=== PATIENT | female | born 1990 | race African-American/Black ===

== ENCOUNTER 2017-10-05 18:08 | Emergency (ER) | payer OTHER, MEDICAID ==
[~2017-10-05] VITALS: Ht 157.5 cm; Wt 113.4 kg
[~2017-10-05 18:08] MED LIST: ACETAMINOPHEN-1 EAC1 PO; BACTRIM DS TAB1 EACH PO; IBUPROFEN 800800 M1 PO
[2017-10-05] MEDS ORDERED: TYLENOL EXTRA500 MG PO (18:26)
[2017-10-05 18:53] LABS: ABSOLUTE LYMPHOCYTES 1.3 thou/uL (0.8-5.3); ABSOLUTE MONOCYTES 0.7 thou/uL (0.0-1.2); ABSOLUTE NEUTROPHILS 6.8 thou/uL (1.6-8.1); BASOPHILS 0.4 %; EOSINOPHILS 0.4 %; HEMATOCRIT 36.9 % (37.0-47.0); HEMOGLOBIN 11.8 gm/dL (12.0-15.0); LYMPHOCYTES 14.5 %; MCH 24.5 pg (26.0-34.0); MCHC 31.8 g/dL (28.0-37.0); MONOCYTES 7.6 %; MPV 8.2 fl. (7.2-11.1); NUCLEATED RBCS 0 /100WBC; PLATELET COUNT* 301 thou/uL (150-400); POLYS 77.1 %; RDW-CV 14.1 % (10.5-14.5); WBC 8.8 thou/uL (4.0-11.0)
[2017-10-05 19:04] LABS: CALCIUM 8.7 mg/dL (8.5-10.1); CREATININE 0.9 mg/dL (0.6-1.3); POTASSIUM 3.5 mmol/L (3.5-5.1)
[2017-10-05 19:10] LABS: ALBUMIN 3.6 g/dL (3.4-5.0); TOTAL BILIRUBIN 0.4 mg/dL (<0.1-1.0); TOTAL PROTEIN 8.3 g/dL (6.4-8.2)
[2017-10-05 20:50] LABS: URINE BILIRUBIN NEGATIVE (Negative); URINE BLOOD TRACE (Negative); URINE CLARITY CLEAR; URINE COLOR YELLOW; URINE GLUCOSE-RANDOM NEGATIVE (Negative); URINE KETONES 1+ (Negative); URINE LEUKOCYTES NEGATIVE (Negative); URINE NITRITE NEGATIVE (Negative); URINE PROTEIN NEGATIVE (Negative); URINE SPECIFIC GRAVITY >= 1.030 (1.005-1.030); URINE UROBILINOGEN 0.2 E.U./dl (0.2-1.0)
[2017-10-05] MEDS ORDERED: NORCO 5-325 TA1 EACH PO (21:30)
[2017-10-05 21:40] VITALS: BP 141/79
== END 2017-10-05 21:45 | disposition home or self-care (01) ==
LOC: M.ERS 18:08
PROVIDERS: Physician Assistant Surgical
DX: O21.9 Vomiting of pregnancy, unspecified (principal); O34.81 Maternal care for other abnormalities of pelvic organs, first trimester; N83.12 Corpus luteum cyst of left ovary; O26.891 Other specified pregnancy related conditions, first trimester; K08.89 Other specified disorders of teeth and supporting structures; Z3A.01 Less than 8 weeks gestation of pregnancy; Z88.0 Allergy status to penicillin

== ENCOUNTER 2019-08-28 01:17 | Emergency (ER) | payer OTHER ==
[~2019-08-28] VITALS: Ht 157.5 cm; Wt 114.8 kg
[~2019-08-28 01:17] MED LIST changes: +NORCO 5-325 TA1 EACH PO; +TYLENOL EXTRA500 MG PO
[2019-08-28 01:40] LABS: URINE BILIRUBIN NEGATIVE (Negative); URINE BLOOD NEGATIVE (Negative); URINE CLARITY CLEAR; URINE COLOR YELLOW; URINE GLUCOSE-RANDOM NEGATIVE (Negative); URINE KETONES NEGATIVE (Negative); URINE LEUKOCYTES-REFLEX NEGATIVE (Negative); URINE NITRITE-REFLEX NEGATIVE (Negative); URINE PROTEIN NEGATIVE (Negative); URINE SPECIFIC GRAVITY >= 1.030 (1.005-1.030); URINE UROBILINOGEN 0.2 E.U./dl (0.2-1.0)
[2019-08-28 02:10] LABS: ABSOLUTE BASOPHILS 0.1 thou/uL (0.0-0.2); ABSOLUTE EOSINOPHILS 0.1 thou/uL (0.0-0.7); ABSOLUTE LYMPHOCYTES 3.2 thou/uL (0.8-5.3); ABSOLUTE MONOCYTES 0.6 thou/uL (0.0-1.2); ABSOLUTE NEUTROPHILS 4.8 thou/uL (1.6-8.1); BASOPHILS 0.6 %; EOSINOPHILS 1.5 %; HEMOGLOBIN 11.4 gm/dL (12.0-15.0); LYMPHOCYTES 36.3 %; MCH 22.1 pg (26.0-34.0); MCHC 31.6 g/dL (28.0-37.0); MONOCYTES 6.7 %; MPV 8.2 fl. (7.2-11.1); NUCLEATED RBCS 0 /100WBC; PLATELET COUNT* 312 thou/uL (150-400); POLYS 54.9 %; RBC 5.14 mil/uL (4.20-5.00); RDW-CV 16.2 % (10.5-14.5); WBC 8.8 thou/uL (4.0-11.0)
[2019-08-28 02:21] LABS: CALCIUM 8.2 mg/dL (8.5-10.1); CREATININE 1.2 mg/dL (0.6-1.3); POTASSIUM 3.9 mmol/L (3.5-5.1)
[2019-08-28 02:26] LABS: ALBUMIN 3.6 g/dL (3.4-5.0); TOTAL BILIRUBIN 0.2 mg/dL (<0.1-1.0)
[2019-08-28 03:22] LABS: HYPOCHROMASIA 2+; MICROCYTES 2+
[2019-08-28 03:23] LABS: PLATELET ESTIMATE ADEQUATE
[2019-08-28] MEDS ORDERED: REGLAN 10 MG TA10 MG PO (04:12)
[2019-08-28] MEDS ORDERED: HYDROCODON-ACE1 EAC8 PO (04:12)
[2019-08-28 04:45] VITALS: BP 152/77
[2019-09-10] MEDS ORDERED: PERCOCET 5-3251 EACH PO (10:10)
[2019-09-10] MEDS ORDERED: OXYCODONE HCL 55 MG PO (10:40)
== END 2019-08-28 04:45 | disposition home or self-care (01) ==
LOC: M.ERS 01:17
PROVIDERS: Emergency Medicine
DX: K80.20 Calculus of gallbladder without cholecystitis without obstruction (principal); I10 Essential (primary) hypertension; Z98.890 Other specified postprocedural states; Z88.0 Allergy status to penicillin

== ENCOUNTER → 2019-09-10 | Day surgery (SDC) | payer OTHER ==
[~2019-09-10] MED LIST changes: +HYDROCODON-ACE1 EAC8 PO; +OXYCODONE HCL 55 MG PO; +PERCOCET 5-3251 EACH PO; +REGLAN 10 MG TA10 MG PO
[2019-09-10 06:37] LABS: HEMATOCRIT 35.9 % (37.0-47.0); HEMOGLOBIN 11.3 gm/dL (12.0-15.0)
--- NOTE | 2019-09-11 17:07 | PATH ---
[address] [address] PATHOLOGY RPT PROCEDURE Name: ALICIA SALTER Room: [facility]#: [id number] Admission: 09/10/19 Date of : 86 Discharge: Report #: [id number] Path Case #: [id number] [facility] Accession Number: [id number] . 01 Material submitted: . gallbladder - GALLBLADDER . 01 Clinical history: . Symptomatic cholelithiasis . 02 Diagnosis: Gallbladder: - Chronic cholecystitis, cholesterolosis and cholelithiasis. . (DAVID:dhruv; 09/11/2019) [facility] 09/11/2019 1241 Local . 02 Electronically signed: . Delroy Germain MD, Pathologist NPI- [id number] . 01 Gross description: . The specimen is received in formalin, labeled "darius Doran". Received is an intact gallbladder measuring 5.4 x 2.9 x 2.6 cm in greatest dimensions displaying a blue-purple serosal surface. Opening the specimen reveals a velvety, bile-stained mucosa with moderate cholesterolosis, and with a gallbladder wall thickness of 0.1 cm. Calculi are present displaying a bright yellow and multinodular appearance, and no masses or lesions are noted grossly. Stone Hand sections, to include the proximal margin, are submitted in cassette A1. (CAA; 09/10/2019) QA/QA 09/10/2019 1700 Local . 02 Pathologist provided ICD-10: K80.10, K82.4 . 02 CPT . 889168 Specimen Comment: A courtesy copy of this report has been sent to [phone] Specimen Comment: Report sent to Performed at: [address], [place] [id number] MD Hi Leiva MD Phone: [phone] Performed at: 02 [facility] [address], [place], [place] [id number] MD Delroy Germain MD Phone: [phone]
--- NOTE | 2019-09-13 09:31 | OP ---
[address] [address] OPERATIVE REPORT Name: ALICIA SALTER Room: [facility]#: [id number] Admission: 09/10/19 Attend Phys: Megan Snyder Discharge: Date of : 86 Report #: [id number] THIS REPORT FOR: //name// cc: ANAID Burns family physician/PCP ANAID Burns family physician/PCP ~ THIS REPORT FOR: //name// CC: ANAID physician/PCP Thomas Chase DATE OF SERVICE: 09/10/2019 PREOPERATIVE DIAGNOSIS: Symptomatic biliary colic secondary to cholelithiasis. POSTOPERATIVE DIAGNOSIS: Symptomatic biliary colic secondary to cholelithiasis. SURGEON: Thomas Chase DO MARBLE FINISHER: Dr. Angel Iraheta PROCEDURE: Laparoscopic cholecystectomy. INDICATIONS: The patient is a 29-year-old female who presented to the office with complaints of postprandial right upper quadrant pain. History of present illness, physical exam, and imaging were consistent with biliary colic secondary to cholelithiasis. The patient opted for cholecystectomy. Risks and benefits were explained in detail. Risks of bleeding, infection, damage to nearby structures including bowel and common bile duct were explained. DESCRIPTION OF PROCEDURE: The patient was taken to the operating theater and placed in supine position. Bilateral SCDs were placed and preoperative antibiotics were given. General anesthesia was induced without complication. The patient's abdomen was prepped and draped in standard sterile fashion. A timeout was performed and all were in agreement. A supraumbilical incision was made using an 11 blade scalpel. Dissection to the midline fascia was done with S retractors. Once the midline fascia was encountered, it was scored with electrocautery and elevated into the operative field using Susy clamps. The abdomen was entered bluntly using a hemostat. Bilateral fascial stay sutures were placed using 0 Vicryl. The Ishmael trocar was inserted and secured. The camera was inserted and the abdomen was insufflated to 15 mmHg. We visualized the abdomen and no abdominal contents were injured upon abdominal entry. The patient was placed in the reverse Trendelenburg and left side down position. A 5 mm trocar was inserted in the subxiphoid [place] [address] OPERATIVE REPORT Name: ALICIA SALTER Room: [facility]#: [id number] Admission: 09/10/19 Attend Phys: Megan Snyder Discharge: Date of : 86 Report #: [id number] visualization. Next, two more 5 mm trocars were placed in the subcostal position in the right upper quadrant under direct visualization. The gallbladder fundus was then grasped and taken anteriorly and cephalad. Julian's pouch was grasped and taken medially and cephalad. The lateral gallbladder peritoneum was taken down using electrocautery. This plane was developed around Julian's pouch and medially. Julian's pouch was then taken laterally and the medial gallbladder peritoneum was taken down using electrocautery. Next, the cystic duct and cystic artery were circumferentially dissected using [place] dissector. Once the hepatocystic triangle had been completely dissected, there were two structures and only two structures entering the gallbladder. We obtained a critical view. Next, the cystic duct was clipped twice proximally and once distally. The cystic artery was clipped twice proximally and once distally. EndoShears were then used to transect the cystic duct and cystic artery between the proximal and distal clips respectively. Next, the gallbladder was elevated towards the anterior abdominal wall and taken off the gallbladder fossa using electrocautery. Once this was dissected completely free, it was placed into an EndoCatch bag and placed to the side. Next, the gallbladder fossa was visualized again and electrocautery was used for hemostasis. The cystic artery and duct clips were visualized again and there was no bile or blood leakage. Next, the 5 mm trocars were removed under direct visualization. The Ishmael trocar and the gallbladder in the EndoCatch bag were then removed and the abdomen was completely desufflated. The midline fascia was closed using 0 Vicryl in a prjqfy-nv-doxup fashion. All skin incisions were closed using 4-0 Monocryl in an interrupted inverted fashion. All surgical wounds were dressed with Dermabond. This concluded the procedure. All sponge, needle and instrument counts were correct x 2. COMPLICATIONS: None. FINDINGS: Normal biliary anatomy. ESTIMATED BLOOD LOSS: 10 mL SPECIMENS: Gallbladder. DRAINS: None. DISPOSITION: The patient was taken to the PACU after being successfully extubated in the operating theater. <ELECTRONICALLY SIGNED> By: Thomas Chase DO 09/13/1933 15 40Thomas Chase DO /nt
--- NOTE | 2019-09-13 09:39 | OP ---
[facility] [address] [place] [address] OPERATIVE REPORT Name: ALICIA SALTER Room: [facility].#: [id number] Admission: 09/10/19 Attend Phys: Megan Snyder Discharge: Date of : 86 Report #: [id number] THIS REPORT FOR: //name// cc: ANAID - No family physician/PCP ANAID - No family physician/PCP ~ THIS REPORT FOR: //name// <ELECTRONICALLY SIGNED> By: Thomas Chase DO 09/13/19 0939 1011 1100Thomas Chase DO /nt
== END | disposition home or self-care (01) ==
LOC: M.SUR 06:08
PROVIDERS: ATTEND Surgery
DX: K80.10 Calculus of gallbladder with chronic cholecystitis without obstruction (principal); I10 Essential (primary) hypertension; Z11.59 Encounter for screening for other viral diseases; Z98.890 Other specified postprocedural states; Z79.899 Other long term (current) drug therapy; Z79.891 Long term (current) use of opiate analgesic; Z88.0 Allergy status to penicillin

== ENCOUNTER 2019-11-20 17:42 | Emergency (ER) | payer OTHER ==
[~2019-11-20] VITALS: Ht 157.5 cm; Wt 112.0 kg
[2019-11-20] MEDS ORDERED: BACTRIM DS TAB1 EACH PO (19:45)
[2019-11-20] MEDS ORDERED: KEFLEX500 M1 PO (19:45)
[2019-11-20] MEDS ORDERED: IBUPROFEN 800800 M1 PO (19:48)
[2019-11-20] MEDS ORDERED: NORCO 5-325 TA1 EAC2 PO (19:48)
[2019-11-20 19:57] VITALS: BP 159/78
== END 2019-11-20 19:57 | disposition home or self-care (01) ==
LOC: M.ERS 17:42
DX: L02.412 Cutaneous abscess of left axilla (principal); I10 Essential (primary) hypertension; Z88.0 Allergy status to penicillin; Z98.51 Tubal ligation status; Z98.890 Other specified postprocedural states

== ENCOUNTER 2020-02-01 08:11 | Emergency (ER) | payer OTHER ==
[~2020-02-01] VITALS: Ht 157.5 cm; Wt 108.9 kg
[~2020-02-01 08:11] MED LIST changes: +KEFLEX500 M1 PO; +NORCO 5-325 TA1 EAC2 PO
[2020-02-01 09:46] LABS: ABSOLUTE LYMPHOCYTES 0.7 thou/uL (0.8-5.3); ABSOLUTE MONOCYTES 0.4 thou/uL (0.0-1.2); ABSOLUTE NEUTROPHILS 2.6 thou/uL (1.6-8.1); BASOPHILS 0.5 %; EOSINOPHILS 0.3 %; HEMATOCRIT 34.6 % (37.0-47.0); HEMOGLOBIN 10.9 gm/dL (12.0-15.0); LYMPHOCYTES 18.9 %; MCH 22.3 pg (26.0-34.0); MCHC 31.4 g/dL (28.0-37.0); MCV 71.1 fL (80.0-100.0); MONOCYTES 9.6 %; MPV 7.8 fl. (7.2-11.1); NUCLEATED RBCS 0 /100WBC; PLATELET COUNT* 225 thou/uL (150-400); POLYS 70.7 %; RBC 4.87 mil/uL (4.20-5.00); RDW-CV 15.7 % (10.5-14.5); WBC 3.7 thou/uL (4.0-11.0)
[2020-02-01 10:03] LABS: CALCIUM 8.1 mg/dL (8.5-10.1); CREATININE 0.8 mg/dL (0.6-1.3); POTASSIUM 3.7 mmol/L (3.5-5.1)
[2020-02-01 11:02] LABS: HYPOCHROMASIA 1+; MICROCYTES 2+; PLATELET ESTIMATE ADEQUATE
[2020-02-01 11:30] VITALS: BP 122/68
--- NOTE | 2020-02-04 08:31 | EKG ---
[place] [address] ELECTROCARDIOGRAM REPORT Name: ALICIA SALTER Room: 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
== END 2020-02-01 11:30 | disposition home or self-care (01) ==
LOC: M.ERS 08:11
PROVIDERS: Emergency Medicine Emergency Medical Services
DX: R50.9 Fever, unspecified (principal); Z20.828 Contact with and (suspected) exposure to other viral communicable diseases; J02.9 Acute pharyngitis, unspecified; R09.89 Other specified symptoms and signs involving the circulatory and respiratory systems; I10 Essential (primary) hypertension; Z98.890 Other specified postprocedural states; Z98.51 Tubal ligation status; Z88.0 Allergy status to penicillin

== ENCOUNTER 2021-03-20 14:26 | Emergency (ER) | payer OTHER ==
[~2021-03-20] VITALS: Ht 157.5 cm; Wt 102.1 kg
[2021-03-20] MEDS ORDERED: SPIRONOLACTONE100 M1 PO (14:41)
[2021-03-20] MEDS ORDERED: TOPAMAX100 MG PO (14:41)
[2021-03-20] MEDS ORDERED: METFORMIN HCL500 M3 PO (14:41)
[2021-03-20] MEDS ORDERED: PHENTERMINE H37.5 MG PO (14:42)
[2021-03-20] MEDS ORDERED: CEPHALEXIN500 MG PO (15:09)
[2021-03-20 15:54] VITALS: BP 138/91
== END 2021-03-20 15:55 | disposition home or self-care (01) ==
LOC: M.ERS 14:26
DX: S01.511A Laceration without foreign body of lip, initial encounter (principal); I10 Essential (primary) hypertension; F41.9 Anxiety disorder, unspecified; Z98.51 Tubal ligation status; Z79.899 Other long term (current) drug therapy; Z88.0 Allergy status to penicillin; W01.0XXA Fall on same level from slipping, tripping and stumbling without subsequent striking against object, initial encounter; Y93.89 Activity, other specified; Y92.89 Other specified places as the place of occurrence of the external cause; Y99.8 Other external cause status

== ENCOUNTER 2021-03-26 09:34 | Emergency (ER) | payer OTHER, MEDICAID ==
[~2021-03-26] VITALS: Ht 157.5 cm; Wt 102.1 kg
[~2021-03-26 09:34] MED LIST changes: +CEPHALEXIN500 MG PO; +METFORMIN HCL500 M3 PO; +PHENTERMINE H37.5 MG PO; +SPIRONOLACTONE100 M1 PO; +TOPAMAX100 MG PO
[2021-03-26 10:12] VITALS: BP 144/86
== END 2021-03-26 10:12 | disposition home or self-care (01) ==
LOC: M.ERS 09:34
DX: S01.511D Laceration without foreign body of lip, subsequent encounter (principal); I10 Essential (primary) hypertension; F41.9 Anxiety disorder, unspecified; Z98.890 Other specified postprocedural states; Z98.51 Tubal ligation status; Z79.2 Long term (current) use of antibiotics; Z79.899 Other long term (current) drug therapy; Z88.0 Allergy status to penicillin; X58.XXXD Exposure to other specified factors, subsequent encounter